=== PATIENT | male | born 1965 | race Caucasian/White ===

== ENCOUNTER 2023-06-17 10:43 | Emergency (ER) | payer SELFPAY ==
--- NOTE | ~2023-06-17 | XR_ITS ---
EXAMINATION: XR shoulder RT min 2V DATE: 06/17/2023 12:22 INDICATION: Right shoulder pain. TECHNIQUE: 4 views of right shoulder were obtained. COMPARISON: None. FINDINGS: Bone alignment is normal. No fracture. There is moderate osteoarthritis of glenohumeral opal nt and mild osteoarthritis of acromioclavicular joint. IMPRESSION: 1. Polyarticular osteoarthritis. Reviewed, dictated and finalized at location A. [employer]
[2023-06-17 11:05] VITALS: BP 158/103; PULSE 80; RESP 18; TEMP 36.4; O2SAT 97
--- NOTE | 2023-06-17 12:08 | ED.UPPEXIN ---
HPI - Extremity Injury (Upper) General Chief Complaint: Extremity Injury, Upper Stated Complaint: chronic shoulder pain Time Seen by Provider: 06/17/23 11:59 History of Present Illness HPI narrative: Patient is a 57-year-old male here with right shoulder pain. He states that he has been having some right shoulder pain since right before . 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 He notes continued normal range of motion but the shoulder throb significantly at night which has limited his ability to sleep over the last few days. The pain is located both behind the shoulder and in front of the shoulder radiating into both his neck and his chest and improves with certain movements and worsens with others. He has been using some ibuprofen at home which is limited help as well as some heating pads. He does not have a primary care doctor and has not seen a physician for probably about 20 years. He has been unable to take time off of work to rest the shoulder but does note it continues to hurt after a weekend off of work. No prior orthopedic surgeries that he is aware of. No recollection of traumatic injury. Related Data Allergies Allergy/AdvReac Type Severity Reaction Status Date / Time naproxen Allergy Unknown Hives Verified 06/17/23 13:22 Review of Systems Review of Systems: All systems reviewed & are unremarkable except as noted in HPI and below Exam Narrative: GENERAL: Well-appearing, well-nourished, and in no acute distress. HEAD: Normocephalic, atraumatic. EYES: PERRLA and EOMI. ENT: Nares clear. Mucous membranes moist. NECK: Supple. CHEST: Clear to auscultation. No respiratory distress. HEART: Regular rate and rhythm. Normal peripheral pulses. ABDOMEN: Soft, nontender, nondistended. EXTREMITIES: Normal range of motion. Strong right radial pulse, tenderness over the posterior and anterior aspect of the shoulder as well as in the proximal humerus, no deformities. No sensory deficits. SKIN: Warm, dry, no rash. NEURO: No focal deficits. Alert and oriented x3. PSYCH: Normal mood and affect. Course Course Emergency Course: Chart review performed. Patient here with right shoulder pain since radiating to back and shoulder. Triage vitals grossly normal today. No prior visits in our system. Patient seen evaluated, nontoxic appearing. Suspect musculoskeletal source to his shoulder pain. He does have several family members who have needed shoulder replacements. Suspect likely arthritis due to overuse with his manual labor job verses rotator cuff injury. X-ray negative. Will do pain medication and referral to primary care doctor as well as Orthopedic surgery. Advise rest as tolerated and is he is able to with his job. He should return should his symptoms worsen or he develop any new symptoms. The results of pertinent diagnostic studies and exam findings were discussed. The patient?s provisional diagnosis and plan of care were discussed with the patient and present family. The patient and/or present family expressed understanding of the diagnosis and plan. The nurse was instructed to provide written instructions and appropriate follow-up information. The patient understands their need and responsibility to obtain additional follow-up as instructed. The risks of medications administered and prescribed were discussed with the patient and family present. Vital Signs Vital signs: Vital Signs Temperature 97.6 F 06/17/23 11:05 Pulse Rate 80 06/17/23 11:05 Respiratory Rate 18 06/17/23 11:05 Blood Pressure 158/103 H 06/17/23 11:05 Pulse Oximetry 97 06/17/23 11:05 Oxygen Delivery Room Air 06/17/23 11:05 Temperature 97.6 F 06/17/23 11:05 Pulse Rate 80 06/17/23 11:05 Respiratory Rate 18 06/17/23 11:05 Blood Pressure 158/103 H 06/17/23 11:05 Pulse Oximetry 97 06/17/23 11:05 Oxygen Delivery Room Air 06/17/23 11:05 Discharge Plan Discharge C
[2023-06-17] MEDS: HYDROcodone/acetaminophen (*CRX) 5-325 MG TABLET 1 TAB PO (13:24)
[2023-06-17 13:31] VITALS: BP 150/89; PULSE 84; RESP 16; O2SAT 97
== END 2023-06-17 13:32 | disposition home or self-care (01) ==
PROVIDERS: Emergency Provider Student in an Organized Health Care Education/Training Program
DX: M25.511 Pain in right shoulder (principal)
CPT/HCPCS: 73030; 99283; A9270

== ENCOUNTER 2023-12-01 08:56 | Emergency (ER) | payer SELFPAY ==
--- NOTE | ~2023-12-01 | CT_ITS ---
EXAMINATION: CTA chest PE abdomen pel DATE: 12/01/2023 10:38 INDICATION: Chest pain. Shortness of breath. Abdominal pain. Nausea. TECHNIQUE: Computed tomography angiography (CTA) of the chest was performed with 100 mL Omnipaque-350 intravenous contrast timed to evaluate the pulmonary arteries. Coronal maximum intensity projection 3D-reconstructions were created by the technologist. Computed tomography (CT) of the abdomen and pelv is was performed with intravenous contrast. Automated exposure control and iterative reconstruction t echnique were employed. The dose-length product was 818.92 mGy-cm. COMPARISON: None. FINDINGS: CTA chest: There is mild emphysema. There is mild scarring at left lung apex. There is mild atelectas is bilaterally. There are calcified pleural plaques bilaterally, which may be seen with asbestos expo sure. No pleural effusion. The heart size is normal. No pericardial effusion. There is no pulmonary e mbolus. There are old healed left rib fractures. There is mild chronic anterior wedging of T11 and T1 2 vertebral bodies. There is mild thoracic spondylosis. CT abdomen and pelvis: The liver, gallbladder, spleen, pancreas, adrenal glands, and right kidney are normal. There is a 4 mm cyst in left kidney. There are bilateral inguinal hernias containing fat. Th ere is diverticulosis of the colon without evidence of diverticulitis. There are no dilated loops of bowel. The appendix is normal. There are no pathologically enlarged lymph nodes. There is no free int raperitoneal fluid. There is mild chronic anterior wedging of L1. There is moderate lumbar spondylosi s. Lumbar levoscoliosis is noted. IMPRESSION: 1. No pulmonary embolus. 2. Mild emphysema. 3. Bilateral inguinal hernias containing fat. Reviewed, dictated and finalized at location A.
[2023-12-01 09:00] VITALS: BP 130/95; PULSE 82; RESP 20; TEMP 37.1; O2SAT 97
[2023-12-01 09:15] LABS: Hematocrit 47.2 % (42.0-52.0); Hemoglobin 15.5 g/dL (14.0-18.0); Mean Corpuscular HGB Conc 32.8 g/dl (32-36); Mean Corpuscular Hemoglobin 28.2 pg (26-34); Mean Platelet Volume 11.5 fl (7.4-10.4); Platelet Count Result 236 k/mm3 (150-375); Red Blood Count 5.49 M/mm3 (4.6-6.20); Red Cell Distribution Width 13.4 % (11.5-14.5); White Blood Count 11.3 K/mm3 (4.5-10.0)
[2023-12-01 09:30] LABS: Prothrombin Time 13.6 Seconds (11.1-14.7)
[2023-12-01 09:31] LABS: Partial Thromboplastin Time 28.4 Seconds (22.3-36.8)
[2023-12-01 09:33] LABS: Alanine Aminotransferase 18 U/L (6-50); Albumin Level 4.7 g/dL (3.5-5.1); Alkaline Phosphatase 121 U/L (38-126); Anion Gap 11 mmol/L (4-12); Aspartate Amino Transferase 24 U/L (17-59); Bilirubin,Total 0.6 mg/dL (0.2-1.3); Blood Urea Nitrogen 15 mg/dL (9-20); Calcium 9.2 mg/dL (8.4-10.2); Carbon Dioxide 19 mmol/L (22-30); Chloride 108 mmol/L (98-107); Estimated CRCL calculation 91 ml/min; Estimated Glomerular Filt Rate > 60; Glucose 162 mg/dL (65-110); Lactic Acid Reflex 2.4 mmol/L (0.7-2.0); Lipase 51 U/L (23-300); Potassium 3.7 mmol/L (3.4-5.0); Sodium 138 mmol/L (137-145)
[2023-12-01 09:47] LABS: Basophils Absolute Manual 0.11 K/mm3 (0.0-0.1); Basophils Percent Manual 1 % (0-1); Eosinophils Absolute Manual 0.22 K/mm3 (0.02-0.50); Eosinophils Percent Manual 2 % (0-4); Monocytes Absolute Manual 0.45 K/mm3 (0.1-0.90); Monocytes Percent Manual 4 % (3-9); Neutrophils Percent Manual 77 % (46-73); Platelet Estimate Adequate (Adequate); Schistocytes None Seen; Total Cells Counted 100
--- NOTE | 2023-12-01 09:50 | ECG_ITS ---
Test Date: 2023-12-01 10:07:42 Measurements Intervals [place] Rate: 63 P: 56 IA: 136 QRS: -7 QRSD: 107 T: 22 QT: 410 QTc: 420 Interpretive Statements SINUS RHYTHM INCOMPLETE RIGHT BUNDLE BRANCH BLOCK [90+ ms QRS DURATION, TERMINAL R IN V1/V2, 40+ ms S IN I/aVL/V4/V5/V6] No previous ECG available for comparison Electronically Signed On 12-01-2023 13:37:51 CDT by Arvin Rust M.D.
--- NOTE | 2023-12-01 09:52 | ED.ABDPAIN ---
HPI - Abdominal Pain General Chief Complaint: Abdominal Pain Stated Complaint: abd pain x 2 weeks Time Seen by Provider: 12/01/23 09:14 Source: patient Mode of arrival: ambulatory Limitations: no limitations History of Present Illness HPI narrative: This is a 58-year-old male that presents to the emergency department for epigastric abdominal pain. Ongoing over the last 2 weeks. Reports he does take about 15 ibuprofen daily. He has been doing this for years. The pain gets better after eating, but then seems to worsen again. He does get occasional associated chest pain and nausea. He also reports he has had exertional dyspnea that has been ongoing for months. Denies fever, cough, vomiting, or diarrhea. Related Data Allergies Allergy/AdvReac Type Severity Reaction Status Date / Time naproxen Allergy Unknown Hives Verified 06/17/23 13:22 Review of Systems Review of Systems: CONSTITUTIONAL: Denies fever CARDIOVASCULAR: Reports chest pain. Denies edema. RESPIRATORY: Reports dyspnea. Denies cough GASTROINTESTINAL: Reports abdominal pain, nausea. Denies vomiting, or diarrhea. All systems reviewed & are unremarkable except as noted in HPI and below PMFSH Past Medical History Medical History (Updated 12/01/23 @ 11:18 by Ashley Soto PA-C) No active medical problems Social History Social History (Updated 12/01/23 @ 09:55 by Ashley Soto PA-C) Smoking status: Current some day smoker Exam Narrative: GENERAL: Well-appearing, well-nourished, and in no acute distress. HEAD: Normocephalic, atraumatic. EYES: EOMI. CHEST: Clear to auscultation. No respiratory distress. No wheezes rales or rhonchi HEART: Regular rate and rhythm. No murmur heard. Normal peripheral pulses. ABDOMEN: Soft, nondistended, normal active bowel sounds. Tender to palpation in the epigastrium, without guarding EXTREMITIES: Normal range of motion. No edema. SKIN: Warm, dry, no rash. NEURO: No focal deficits. Alert and oriented x3. PSYCH: Normal mood and affect Course Course Emergency Course: patient updated on his workup and agrees with plan of care Vital Signs Vital signs: Vital Signs Temperature 98.8 F 12/01/23 09:00 Pulse Rate 82 12/01/23 09:00 Respiratory Rate 20 12/01/23 09:00 Blood Pressure 130/95 H 12/01/23 09:00 Pulse Oximetry 97 12/01/23 09:00 Oxygen Delivery Room Air 12/01/23 09:00 Temperature 98.8 F 12/01/23 09:00 Pulse Rate 64 12/01/23 12:54 Respiratory Rate 16 12/01/23 12:54 Blood Pressure 124/82 12/01/23 12:54 Pulse Oximetry 99 12/01/23 12:54 Oxygen Delivery Room Air 12/01/23 09:00 MDM - Abdominal Pain MDM Narrative Medical decision making narrative: Patient presents to the emergency department for epigastric abdominal pain. Ongoing over the last 2 weeks. Reports taking high doses of ibuprofen daily for years. Reports some shortness of breath and intermittent chest discomfort associated. He is afebrile and nontoxic appearing. His vitals are stable. CBC with mild leukocytosis to 11.3. Metabolic panel without concerning findings. Initial lactic acid elevated, this normalized with IV fluid hydration. UA without evidence of infection. EKG without concerning changes and baseline troponin is negative. D-dimer elevated, CTA of the chest with abdomen and pelvis obtained. No PE or acute cardiopulmonary abnormality. Does show some evidence of emphysema. Patient was updated on his workup and agrees with plan of care. Will be started on omeprazole for suspected peptic ulcer disease due to NSAID use. He was instructed to follow-up with gastroenterology. He was given warnings to return to the ER Differential Diagnosis Differential diagnosis: Likely pancreatitis and other ( peptic ulcer disease, gastritis, biliary colic) Lab Data Attestation: I reviewed the patient's lab results. 12/01/23 09:10 12/01/23 09:10 Labs: Lab Results 11/07
[2023-12-01] MEDS: ONDANSETRON INJ 4 MG/2 ML VIAL IV PUSH (10:01)
[2023-12-01] MEDS: SODIUM CHLORIDE 0.9% IV 1,000 ML 999 ML IV CONT (10:01)
[2023-12-01] MEDS: PANTOPRAZOLE SODIUM IV 40 MG VIAL IV PUSH (10:01)
[2023-12-01 10:11] LABS: D Dimer 0.67 ug/mL (<0.48)
[2023-12-01 10:17] LABS: Troponin I < 0.012 ng/mL (0.000-0.034)
[2023-12-01 10:24] LABS: Appearance Urine Clear (Clear); Bilirubin Urine Negative (Negative); Blood Urine Negative (Negative); Color Urine Yellow (Yellow); Glucose Urine UA Negative (Negative); Ketones Urine Negative (Negative); Leukocyte Esterase Ur Negative LEU/UL (Negative); Nitrate Urine Negative (Negative); Protein Urine Negative (Negative); Urobilinogen Urine 0.2 mg/dL (<2.0); pH Urine 7.5 (5.0-9.0)
[2023-12-01 10:26] LABS: Add Urine Microscopic? NO
[2023-12-01 11:30] VITALS: BP 129/93; PULSE 66; RESP 16; O2SAT 96
[2023-12-01 12:13] LABS: Reflex Lactic Acid Yes or No Add Lactic
[2023-12-01 12:54] VITALS: BP 124/82; PULSE 64; RESP 16; O2SAT 99
[2023-12-01 13:11] LABS: Lactic Acid 0.8 mmol/L (0.7-2.0)
[2023-12-01 13:57] VITALS: BP 125/92; PULSE 61; RESP 16; O2SAT 99
== END 2023-12-01 14:00 | disposition home or self-care (01) ==
PROVIDERS: Emergency Medicine; Emergency Provider Physician Assistant
DX: R10.13 Epigastric pain (principal); F17.200 Nicotine dependence, unspecified, uncomplicated
CPT/HCPCS: 36415; 71275; 74177; 80053; 81003; 83605; 83690; 84484; 85025; 85380; 85610; 85730; 93005; 96361; 96374; 96375; 99284; C9113; J2405; J7030; Q9967

== ENCOUNTER 2025-04-16 14:12 | Emergency (ER) | payer MEDICAID, SELFPAY ==
--- NOTE | ~2025-04-16 | CT_ITS ---
EXAMINATION: CT facial bones w con COMPARISON: None HISTORY: right sided facial swelling TECHNIQUE: Axial images were obtained with IV contrast. Sagittal, coronal reconstruction images were obtained from the axial views. Omnipaque 370, [address] scan performed using dose optimization techniques including the following automated exposure control; adjustment of mA and/or kV; use of iterative reconstruction technique. Automatic exposure control was used to reduce radiation dose. Permanent radiation dose record is archived to PACS. FINDINGS: The visualized brain parenchyma appears unremarkable. The optic globes are unremarkable. There is no thickening of the prevertebral space or asymmetry of the airway. No asymmetry of the base of the tongue on the aryepiglottic folds. No asymmetry of the vocal cords. No thyroid nodules appreciated. The s ubmandibular and parotid glands unremarkable. There is no jugulodigastric or posterior cervical lymphadenopathy. There is stranding within the subcutaneous tissues overlying the right maxilla and the right mandible although there is no rim-enhancing abscess identified. There are enlarged right paranasal submandibular lymph nodes the largest 1.5 x 1.2 cm. No sclerotic or lytic lesions identified. There is moderate ethmoidal and mild to moderate maxillary sinusitis. Significant dental disease noted involving the maxilla bilaterally and the right mandible. IMPRESSION: Cellulitis detailed above although there is no rim-enhancing abscess identified. Reviewed, dictated and finalized at location P. PAINTER IMPRESSION: Cellulitis detailed above although there is no rim-enhancing absces s identified.
[2025-04-16 14:22] VITALS: BP 125/85; PULSE 84; RESP 16; TEMP 36.6; O2SAT 96
--- NOTE | 2025-04-16 14:52 | ED_ITS ---
HPI - Dental/Oral General Chief complaint: Dental/Oral Stated complaint: facial swelling Time Seen by Provider: 04/16/25 14:26 Source: patient Mode of arrival: ambulatory Limitations: no limitations History of Present Illness HPI Narrative: This is a 59 year old male that presents to the ER for toothache. Ongoing over the last couple of days. Reports right sided facial swelling. Denies fevers. MD Complaint: tooth pain Location: Tooth # (7,6 ) Related Data Allergies Allergy/AdvReac Type Severity Reaction Status Date / Time naproxen Allergy Unknown Hives Verified 06/17/23 13:22 Review of Systems 2 Review of Systems: All systems reviewed & are unremarkable except as noted in HPI and below PMFSH Past Medical History Medical History (Updated 04/16/25 @ 16:30 by Ashley Soto PA-C) No active medical problems Exam 2 Narrative: GENERAL: Well-appearing, well-nourished, and in no acute distress. HEAD: Normocephalic, atraumatic. EYES: EOMI. ENT: Nares clear, no rhinorrhea or epistaxis. Mucous membranes moist. Oropharynx without tonsillar hypertrophy exudate or other lesions. Poor dentition. Teeth number 6, 7 tender to palpation with mild surrounding gingival swelling without focal fluctuance NECK: Supple. No adenopathy or masses. CHEST: Clear to auscultation. No respiratory distress. No wheezes rales or rhonchi HEART: Regular rate and rhythm. No murmur heard. Normal peripheral pulses. EXTREMITIES: Normal range of motion. No edema. SKIN: Warm, dry, no rash. NEURO: No focal deficits. Alert and oriented x3. PSYCH: Normal mood and affect Course Vital Signs Vital signs: Vital Signs Temperature 97.8 F 04/16/25 14:22 Pulse Rate 84 04/16/25 14:22 Respiratory Rate 16 04/16/25 14:22 Blood Pressure 125/85 04/16/25 14:22 Pulse Oximetry 96 04/16/25 14:22 Oxygen Delivery Room Air 04/16/25 14:22 Temperature 97.8 F 04/16/25 14:22 Pulse Rate 84 04/16/25 14:22 Respiratory Rate 16 04/16/25 14:22 Blood Pressure 125/85 04/16/25 14:22 Pulse Oximetry 96 04/16/25 14:22 Oxygen Delivery Room Air 04/16/25 14:22 MDM - Dental/Oral MDM Narrative Medical decision making narrative: Patient presents the emergency department for toothache, facial swelling. He is afebrile and nontoxic appearing. His vitals are stable. CBC with mild leukocytosis to 13.5. ESR is not elevated. CRP mildly elevated. CT facial bones shows cellulitis, no abscess identified. Patient given 1st dose of antibiotics IV in the ER. Will be continued on oral antibiotics. Instructed to follow-up with a dentist. He was given warnings to return to the ER Differential Diagnosis Differential diagnosis: Likely dental caries, toothache and dental abscess Lab Data Attestation: I reviewed the patient's lab results. 04/16/25 15:09 04/16/25 15:09 Labs: Lab Results 04/16/25 Range/Units 15:09 WBC 13.5 H (4.5-10.0) K/mm3 RBC 5.08 (4.6-6.20) M/mm3 Hgb 14.2 (14.0-18.0) g/dL Hct 43.1 (42.0-52.0) % MCV 84.8 (80-100) fl MCH 28.0 (26-34) pg MCHC 32.9 (32-36) g/dl RDW 13.6 (11.5-14.5) % Plt Count 180 (150-375) k/mm3 MPV 11.1 H (7.4-10.4) fl Immature Gran % (Auto) 0.4 (0-0.5) % Neut % (Auto) 76.3 H (45.5-73.1) % Lymph % (Auto) 14.8 L (18.3-44.2) % [place] % (Auto) 7.6 (2.6-8.5) % Eos % (Auto) 0.6 (0-4.4) % Baso % (Auto) 0.3 (0.2-1.2) % Lymph # (Auto) 2.00 (0.9-3.2) K/mm3 [place] # (Auto) 1.0 H (0.1-0.6) K/mm3 Eos # (Auto) 0.1 (0-0.3) K/mm3 Baso # (Auto) 0.0 (0.0-0.1) K/mm3 Abs Immat Gran (auto) 0.05 H (0.00-0.031) K/mm3 Absolute Neuts (auto) 10.3 H (1.3-6.7) K/mm3 Absolute Nucleated RBC 0.000 (0.0-0.012) K/mm3 Nucleated RBC % 0.0 (0.0-0.2) % ESR 14 (0-20) mm/hr Sodium 136 L (137-145) mmol/L Potassium 3.8 (3.4-5.0) mmol/L Chloride 105 (98-107) mmol/L Carbon Dioxide 24 (22-30) mmol/L Anion Gap 7 (4-12) mmol/L BUN 11 (9-20) mg/dL Creatinine 0.79 (0.7-1.3) mg/dL Estim Creat Clear Calc 93 ml/min Estimated GFR > 60 (59 - ) Glucose 102 (65-110) mg/dL Calcium 8.8 (8.4-10.2) mg/dL C-Reactive Protein 6.4 H (<1.0) mg/dL Imaging Data Radiologist's impression: ITS Impressions Face CT 04/16/25 16:22 IMPRESSION: Cellulitis detailed above although there is no rim-enhancing abscess identified. Critical Care Time Critical Care Time Critical Care Time: No Discharge Plan Discharge Clinical Impression: Dental infection Patient Disposition: Home Condition: Stable Instructions: Antibiotic Form, Toothache (ED) Additional Instructions: Return to the Emergency Department if you experience fever >101, increasing swelling and redness, or any other symptoms that are concerning to you Take antibiotic as prescribed. Tylenol as needed for pain. Follow up with your dentist. [facility] if needed, Dr. Kyree Garcia Patient Language: Israeli Prescriptions: New amoxicillin-pot clavulanate 875-125 mg tablet 1 tablet PO Q12H 7 Days Qty: 14 0RF No Action oxycodone 5 mg tablet 5 mg PO Q8H PRN (Reason: pain) 3 Days Qty: 10 0RF omeprazole 40 mg capsule,delayed release(DR/EC) 40 mg PO DAILY 30 Days Qty: 30 0RF Follow-up/Referrals: Mi Thorpe, [employer] [Primary Care Provider, Emergency Medicine]
[2025-04-16] MEDS: AMPICILLIN SODIUM/SULBACTAM 3 GM in SODIUM CHLORIDE 0.9% IV 100 ML 200 ML IVPB (15:10)
[2025-04-16 15:15] LABS: Hematocrit 43.1 % (42.0-52.0); Hemoglobin 14.2 g/dL (14.0-18.0); Immature Granulocyte Percent A 0.4 % (0-0.5); Lymphocytes Absolute Auto 2.00 K/mm3 (0.9-3.2); Mean Corpuscular HGB Conc 32.9 g/dl (32-36); Mean Corpuscular Hemoglobin 28.0 pg (26-34); Mean Corpuscular Volume 84.8 fl (80-100); Nucleated Red Blood Cells Absolute Auto 0.000 K/mm3 (0.0-0.012); Nucleated Red Blood Cells Perc 0.0 % (0.0-0.2); Platelet Count Result 180 k/mm3 (150-375); Red Blood Count 5.08 M/mm3 (4.6-6.20); White Blood Count 13.5 K/mm3 (4.5-10.0)
[2025-04-16 15:26] LABS: Anion Gap 7 mmol/L (4-12); Blood Urea Nitrogen 11 mg/dL (9-20); CRP 6.4 mg/dL (<1.0); Calcium 8.8 mg/dL (8.4-10.2); Carbon Dioxide 24 mmol/L (22-30); Chloride 105 mmol/L (98-107); Estimated CRCL calculation 93 ml/min; Estimated Glomerular Filt Rate > 60; Glucose 102 mg/dL (65-110); Potassium 3.8 mmol/L (3.4-5.0); Sodium 136 mmol/L (137-145)
--- NOTE | 2025-04-16 15:53 | PC.NURSE ---
pt to CT
[2025-04-16 16:30] VITALS: BP 119/78; PULSE 75; RESP 16; O2SAT 99
== END 2025-04-16 16:44 | disposition home or self-care (01) ==
PROVIDERS: Emergency Provider Physician Assistant; PCP Nurse Practitioner
DX: K04.7 Periapical abscess without sinus (principal)
CPT/HCPCS: 36415; 70487; 80048; 85025; 85652; 86140; 96365; 99284; J0295; Q9967